=== PATIENT | female | born 1995 | race Caucasian/White ===

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

== ENCOUNTER 2017-02-10 14:07 | Emergency (ER) | payer MEDICAID ==
[~2017-02-10] VITALS: Ht 157.5 cm; Wt 76.0 kg
[2017-02-10 14:56] VITALS: BP 115/68
[2017-02-10] MEDS ORDERED: IPRATROPIUM BROMIDE (0.02%) 0.5MG/2.5ML NEB HHN STA (15:28)
[2017-02-10] MEDS ORDERED: ALBUTEROL (0.083%) 2.5MG/3ML NEB HHN STA (15:28)
[2017-02-10] MEDS ORDERED: PREDNISONE 20MG TABLET PO STA (15:28)
[2017-02-10] MEDS ORDERED: AZITHROMYCIN 500 MG TABLET PO ONE (15:30)
[2017-02-10] MEDS ORDERED: LIDOCAINE HCL 1% 20ML VIAL (Pyxis) INJ INFIL ONE (15:30)
[2017-02-10] MEDS ORDERED: CEFTRIAXONE SODIUM 250 MG/VIAL IM ONE (15:30)
== END 2017-02-10 18:42 | disposition home or self-care (01) ==
LOC: ER 15:00
DX: J45.901 Unspecified asthma with (acute) exacerbation (principal); J06.9 Acute upper respiratory infection, unspecified; Z20.2 Contact with and (suspected) exposure to infections with a predominantly sexual mode of transmission; F12.10 Cannabis abuse, uncomplicated
CPT/HCPCS: 81025; 94640; 96372; 99283; J0696; J3490; J7512; J7611; Z7610

== ENCOUNTER 2020-01-28 22:40 | Observation (INO) | payer MEDICAID ==
[~2020-01-28] VITALS: Ht 157.5 cm; Wt 103.4 kg
== END 2020-01-29 03:00 | disposition home or self-care (01) ==
LOC: 8 EST LDRP 22:40
PROVIDERS: ADMIT Obstetrics & Gynecology; ATTEND Obstetrics & Gynecology
DX: O26.893 Other specified pregnancy related conditions, third trimester (principal); O99.891 Other specified diseases and conditions complicating pregnancy; R10.30 Lower abdominal pain, unspecified; M54.5 Low back pain; Z3A.40 40 weeks gestation of pregnancy
CPT/HCPCS: 59025; G0378; 99281

== ENCOUNTER 2021-07-15 02:01 | Emergency (ER) | payer MEDICAID ==
[~2021-07-15] VITALS: Ht 160 cm; Wt 60.0 kg
[2021-07-15] MEDS ORDERED: ONDANSETRON 4MG ODT PO ONE (02:15)
[2021-07-15] MEDS ORDERED: ACETAMINOPHEN 325MG TABLET PO PRN (02:15)
[2021-07-15 03:33] LABS: BASOPHILS % 0.2 % (0.0-2.0); EOSINOPHILS % 0.6 % (0.0-5.0); HEMATOCRIT. 37.6 % (36.0-48.0); HEMOGLOBIN. 12.8 g/dL (12.0-16.0); LYMPHOCYTES % 28.9 % (20.0-50.0); MEAN CORPUSCULAR HEMOGLOBIN 31.3 pg (28.0-32.0); MEAN CORPUSCULAR VOLUME 91.9 fL (81.0-99.0); MEAN PLATELET VOLUME 8.3 fl (7.4-10.4); MONOCYTES % 5.7 % (2.0-8.0); NEUTROPHILS % 64.6 % (40.0-76.0); PLATELET 267 x1000/uL (130-400); RED BLOOD CELL COUNT 4.09 mill/uL (4.2-5.4); RED CELL DISTRIBUTION WIDTH 12.9 % (11.6-14.6)
[2021-07-15 03:58] LABS: CHLORIDE 108 mEq/L (98-107)
[2021-07-15 05:13] VITALS: BP 112/64
[2021-07-15 06:26] LABS: B-HCG QUANTITATIVE 22592 mIU/mL (<3)
== END 2021-07-15 05:18 | disposition home or self-care (01) ==
LOC: ER 02:01
DX: O99.611 Diseases of the digestive system complicating pregnancy, first trimester (principal); K80.20 Calculus of gallbladder without cholecystitis without obstruction; Z3A.01 Less than 8 weeks gestation of pregnancy
CPT/HCPCS: 36415; 76705; 76801; 76817; 80053; 81025; 84702; 85025; 86850; 86900; 86901; 99284; Q0162